=== PATIENT | male | born 2000 | race Caucasian/White ===

== ENCOUNTER 2021-08-03 12:55 | Emergency (ER) | payer OTHER, SELFPAY ==
--- NOTE | 2021-08-03 13:00 | DI.RAD_ITS ---
Exam(s) XR HAND LT COMPLETE EXAM: XR HAND LT COMPLETE CLINICAL HISTORY: Laceration, palm. R/O glass FB TECHNIQUE: COMPARISON: No exams were available for comparison FINDINGS: Three views were obtained. The patient reportedly has a palm laceration and there is in fact small a mount of gas in soft tissues of the volar aspect of the hand, there are tiny fragments of mildly radi odense material consistent with suspected glass foreign body. No underlying with acute bony abnormality seen. Incidental presumed old radial styloid fracture note d. IMPRESSION: RADIATION DOSE DELIVERED: Total DLP
[2021-08-03 13:07] VITALS: BP 164/71; PULSE 76; RESP 16; TEMP 37.4; O2SAT 98
--- NOTE | 2021-08-03 13:11 | ED.GENADUL_ITS ---
Discharge Plan Disposition Patient Disposition: HOME Condition: Stable Discharge Details Clinical Impression: Laceration of deep palmar arch of left hand Primary Care Provider: Chidi Kapoor ED Provider: Roberta Waters Home Meds and New Rx's Prescriptions: New cephalexin 500 mg tablet 500 mg PO BID 7 Days Qty: 14 RF: 0 Discharge Instructions Instructions: Laceration (ED), Acute Wounds (ED) Additional Instructions: Keep clean and dry. Use dry dressing if you are outside or working. Allow to heal for the next 3 days. Take the antibiotics twice daily as directed. Return to the ER or be seen sooner if you have any signs of increased infection including red streaks, drainage, increased pain or fever. Follow up with primary care provider in 3-5 days. Return to ED sooner if any worsening or concerns. Increase oral fluids. Please take Tylenol or Ibuprofen with food every 4-6 hours as needed for pain and swelling. Stand Alone Forms: School Release Referrals: Chidi Kapoor MD [Primary Care Provider] - 5 days Discharge Data Discharge Date/Time-TO BE ENTERED AT DEPARTURE: 08/03/21 14:45 Medical Decision Making 21-year-old male presents to the ER chief complaint of left palm laceration which occurred last night at midnight. Patient states he was drinking picked up a broken piece of glass outside cutting his palm. He has been cleaning at home with hydrogen peroxide. He has full range of motion noted to his digits. Last tetanus shot was 2011. Imaging ordered to rule out foreign body, let topical anesthetic, wound care. Last tetanus was was within the last 10 years. We will plan on placing patient on antibiotics. 1439: Wound cleaned with chlorhexidine surgical scrub and sterile normal saline. Patient tolerated with some difficulty. Discussed options including infiltrating with anesthetics applying 2 sutures. Patient opted to allow the wound to heal by secondary intention. Patient is very hesitant to have sutures placed. Due to the length of time since laceration which is 13 hours I do believe that this is an agreeable plan. Instructed on home care and follow-up. We will give patient cephalexin and place him on antibiotics for the next 7 days. Discussed home care and wound care strict return instructions including increased signs of infection patient verbalized understanding. Wound was dressed and cleaned extensively with chlorhexidine and sterile normal saline. This text was generated using Sense.[email or web address] system, please disregard any oddities of phrase or misspellings. HPI General Mode of arrival: ambulatory . Date/Time Provider Initiated Documentation: 08/03/21 13:06 . Limitations to Documentation: no limitations . Information obtained by: patient, RN notes reviewed and old records reviewed . HPI Narrative: 21-year-old male presents to the ER chief complaint of left palm laceration which occurred last night at midnight. Patient states he was drinking picked up a broken piece of glass outside cutting his palm. He has been cleaning at home with hydrogen peroxide. He has full range of motion noted to his digits. Last tetanus shot was 2011. Related Data Home Medications Medication Instructions Recorded Confirmed cephalexin 500 mg PO BID 7 Days #14 tab 08/03/21 Previous Rx's Medication Instructions Recorded cephalexin 500 mg PO BID 7 Days #14 tab 08/03/21 Allergies Allergy/AdvReac Type Severity Reaction Status Date / Time No Known Allergies Allergy Unverified 08/03/21 13:10 General Stated Complaint: Laceration BECCA: 4 Review of Systems All systems reviewed & are unremarkable except as noted in HPI and below PFSH Family History Mother Mental disorder Father No problems noted. Social History Smoking/Tobacco Use Status: Never Smoking risk assessment performed?: Yes Drug use: Occasionally Substance use type: marijuana Do you feel safe in your relationship?: Yes Exam Extrem Hand/finger images: 1. Laceration noted to the left palm. Course Vital Signs Vital signs: Vital Signs Temperature 37.4 C 08/03/21 13:07 Pulse 76 08/03/21 13:07 Respiratory Rate 16 08/03/21 13:07 Blood Pressure 164/71 H 08/03/21 13:07 Pulse Oximetry 98 08/03/21 13:07 Temperature 37.4 C 08/03/21 13:07 Temperature Source Skin 08/03/21 13:07 Pulse 76 08/03/21 13:07 Respiratory Rate 16 08/03/21 13:07 Respiratory Effort Non-Labored 08/03/21 13:07 Blood Pressure 164/71 H 08/03/21 13:07 Blood Pressure Position Sitting 08/03/21 13:07 Pulse Oximetry 98 08/03/21 13:07 Oxygen Delivery Method Room Air 08/03/21 13:07 Oxygen Flow Rate 0 08/03/21 13:07 Pain Level 5 08/03/21 13:07
[2021-08-03] MEDS: Cephalexin 500 MG CAP PO (13:36)
[2021-08-03] MEDS: Lidocaine/Epinephri/Tetracaine Topical Gel 3 ML TP (13:37)
[2021-08-03] MEDS: Cephalexin 500 MG CAP, 2 CAPS/BTL PO (13:38)
== END 2021-08-03 14:45 | disposition home or self-care (01) ==
PROVIDERS: Emergency Provider Registered Nurse Emergency; PCP Pediatrics
DX: S61.412A Laceration without foreign body of left hand, initial encounter (principal); W25.XXXA Contact with sharp glass, initial encounter
CPT/HCPCS: 99283; 73130